=== PATIENT | female | born 1990 | race Hispanic/Latino ===

== ENCOUNTER 2017-03-14 20:56 | Emergency (ER) | payer OTHER ==
[~2017-03-14] VITALS: Ht 154.9 cm; Wt 94.0 kg
[2017-03-14] MEDS ORDERED: NAPROSYN500 MG PO (23:14)
[2017-03-14] MEDS ORDERED: FLEXERIL5 MG PO (23:14)
[2017-03-14 23:26] VITALS: BP 109/62
== END 2017-03-14 23:27 | disposition home or self-care (01) ==
LOC: EME 20:56
DX: S39.012A Strain of muscle, fascia and tendon of lower back, initial encounter (principal); M25.552 Pain in left hip; V49.50XA Passenger injured in collision with unspecified motor vehicles in traffic accident, initial encounter
CPT/HCPCS: 71020; 99281; 99283